=== PATIENT | female | born 1970 | race Caucasian/White ===

== ENCOUNTER 2017-07-17 21:19 | Emergency (ER) | payer BC ==
[2017-07-17 21:34] VITALS: BP 121/77
[2017-07-17] MEDS ORDERED: Fluorescein Sod TOPICAL 0.6* 0.6 MG TEST OPHTHALMIC ONE (21:40)
--- NOTE | 2017-07-17 21:47 | UC ---
Eye Complaint HPI - HPI Summary HPI Summary: 47 yo female with onset today of left eye redness and pain /10 since this AM no d/c slight itch slight photophobia see wears contacts - History of Current Complaint Chief Complaint: UCEye Stated Complaint: LEFT EYE COMPLAINT Time Seen by Provider: 07/17/17 21:35 Hx Obtained From: Patient Hx Last Menstrual Period: 07/16/17 Onset/Duration: Gradual Onset, Lasting Hours Timing: Constant Severity Initially: Mild Pain Intensity: 4 Pain Scale Used: 0-10 Numeric Character: Dull Alleviating Factor(s): Darkness Associated Signs And Symptoms: Positive: Drainage (Clear) - Risk Factors Penetrating Injury Risk Factor: Negative Globe Rupture Risk Factors: Negative Acute Glaucoma Risk Factors: Negative Optic Artery Occlusion Risk Factors: Negative - Allergies/Home Medications Allergies/Adverse Reactions: Allergies Allergy/AdvReac Type Severity Reaction Status Date / Time No Known Allergies Allergy Verified 07/17/17 21:34 Home Medications: Home Medications NK [No Home Medications Reported] 07/17/17 [History Confirmed 07/17/17] PMH/Surg Hx/FS Hx/Imm Hx Previously Healthy: Yes - Surgical History Surgical History: Yes Surgery Procedure, Year, and Place: 2 C-SECTS with tubal. breast bx right side/ benign. gallbladder - Family History Known Family History: Positive: Hypertension, Diabetes - Social History Alcohol Use: None Substance Use Type: None Smoking Status (MU): Never Smoked Tobacco Review of Systems Constitutional: Negative Skin: Negative Eyes: Eye Redness, Photophobia ENT: Negative Respiratory: Negative Cardiovascular: Negative Gastrointestinal: Negative Genitourinary: Negative Motor: Negative Neurovascular: Negative Musculoskeletal: Negative Neurological: Negative Psychological: Negative Is Patient Immunocompromised?: No All Other Systems Reviewed And Are Negative: Yes Physical Exam Triage Information Reviewed: Yes Appearance: Well-Appearing, No Pain Distress, Well-Nourished Vital Signs: Initial Vital Signs Temp 98.7 F 07/17/17 21:29 Pulse 79 07/17/17 21:29 Resp 15 07/17/17 21:29 BP 121/77 07/17/17 21:29 Pulse Ox 100 07/17/17 21:29 Eyes: Positive: Conjunctiva Inflamed - most pronounced temporal aspect left eye , Other: - flourescein (-). Negative: Discharge ENT: Positive: Hearing grossly normal. Negative: Nasal congestion, Nasal drainage, Trismus, Muffled voice, Hoarse voice Neck: Positive: Supple, Nontender Respiratory: Positive: Lungs clear, Normal breath sounds, No respiratory distress, No accessory muscle use Cardiovascular: Positive: RRR, No Murmur Musculoskeletal: Positive: ROM Intact, No Edema Neurological: Positive: Alert Psychological Exam: Normal Skin Exam: Normal Eye Complaint Course/Dx - Course Course Of Treatment: advise to she her eye doctor tomorrow - Differential Dx/Diagnosis Provider Diagnoses: left eye chemosis vs conjunctivitis Discharge - Discharge Plan Condition: Stable Disposition: HOME Patient Education Materials: Conjunctivitis (ED) Referrals: Donna Michaels [Primary Care Provider] - Additional Instructions: ? allergic conjunctivitis /chemosis cool compresses benadryl ZADITOR EYE DROPS OTC may help see your eye doctor tomorrow
[2017-07-17] MEDS ORDERED: Polymyx/Trimethoprim OPTH* 10 ML BTL LEFT EYE ONE (21:50)
[2017-07-17] MEDS ORDERED: diPHENhydraMINE PO* 25 MG PO ONE (21:51)
== END 2017-07-17 21:59 | disposition home or self-care (01) ==
LOC: UCCORT 21:19
DX: H57.8 Other specified disorders of eye and adnexa (principal); H53.142 Visual discomfort, left eye
CPT/HCPCS: 99213; A9270-GY; G0463

== ENCOUNTER 2017-09-25 20:54 | Emergency (ER) | payer BC ==
[2017-09-25 21:24] VITALS: BP 136/83
--- NOTE | 2017-09-25 21:35 | UC ---
Throat Pain/Nasal Kareem HPI - HPI Summary HPI Summary: Pt with frontal headache, congestion, and ear fullness progressive x 10 days. Pt has used OTC meds without relief. low grade fever. Pt reports teeth ache today. + green discharge pt's medications reviewed this visit - History of Current Complaint Chief Complaint: UCRespiratory Stated Complaint: SINUS Time Seen by Provider: 09/25/17 21:34 Hx Obtained From: Patient Hx Last Menstrual Period: 09/09/17 ?: No Onset/Duration: Gradual Onset Severity: Mild Pain Intensity: 8 - Allergies/Home Medications Allergies/Adverse Reactions: Allergies Allergy/AdvReac Type Severity Reaction Status Date / Time No Known Allergies Allergy Verified 07/17/17 21:34 Home Medications: Home Medications Naproxen Sodium [Aleve] 440 mg PO Q12H 09/25/17 [History Confirmed 09/25/17] PMH/Surg Hx/FS Hx/Imm Hx Previously Healthy: Yes - Surgical History Surgical History: Yes Surgery Procedure, Year, and Place: 2 C-SECTS with tubal. breast bx right side/ benign. gallbladder - Family History Known Family History: Positive: Hypertension, Diabetes - Social History Occupation: Employed Full-time Lives: With Family Alcohol Use: None Substance Use Type: None Smoking Status (MU): Never Smoked Tobacco Review of Systems Constitutional: Negative Skin: Negative ENT: Sinus Congestion, Sinus Pain/Tenderness Respiratory: Negative All Other Systems Reviewed And Are Negative: Yes Physical Exam Triage Information Reviewed: Yes Appearance: Well-Appearing, No Pain Distress, Well-Nourished Vital Signs: Initial Vital Signs Temp 100.8 F 09/25/17 21:18 Pulse 91 09/25/17 21:18 Resp 17 09/25/17 21:18 BP 136/83 09/25/17 21:18 Pulse Ox 99 09/25/17 21:18 Vital Signs Reviewed: Yes Eye Exam: Normal ENT: Positive: Hearing grossly normal, Pharynx normal, Other - right TM fluid, erythema left TM mild turbinates inflammed and boggy + thick PND no exudate mmoist uvula midline no erythema, no exudate Dental Exam: Normal Neck exam: Normal Neck: Positive: Supple, Nontender Respiratory Exam: Normal Respiratory: Positive: Chest non-tender, Lungs clear, Normal breath sounds, No respiratory distress, No accessory muscle use Cardiovascular Exam: Normal Cardiovascular: Positive: RRR, No Murmur Abdominal Exam: Normal Abdomen Description: Positive: Nontender, No Organomegaly Bowel Sounds: Positive: Present Musculoskeletal Exam: Normal Neurological Exam: Normal Neurological: Positive: Alert Psychological Exam: Normal Throat Pain/Nasal Course/Dx - Course Course Of Treatment: Pt with sinus congestion and progressive ear pain. pt with exam c/w sinusitis and right OM. will start abx. flonase. decongestant - precaution for BP. secretion pecaution. hydrate. return precautions - Differential Dx/Diagnosis Provider Diagnoses: sinusitis. OM - right Discharge - Sign-Out/Discharge Documenting (check all that apply): Discharge/Admit/Transfer - Discharge Plan Condition: Stable Disposition: HOME Prescriptions: Amoxicillin PO (*) [Amoxicillin 875 MG (*)] 875 mg PO BID #14 tab Fluticasone NASAL SPRAY 50MCG* [Flonase NASAL SPRAY 50MCG*] 2 spray BOTH NARES DAILY #1 btl Patient Education Materials: Rhinosinusitis (ED) Referrals: Donna Michaels [Primary Care Provider] - Additional Instructions: - Stay well hydrated. Drink plenty of non-alcoholic, non-caffinated beverages. - Alternate ibuprofen (Advil, Motrin) 600mg and Tylenol every 3 hours for pain or fever. Take with food. Do NOT take for more than 4-5 days. - These infections are spread by secretions - do NOT share eating or drinking utensils - clean items you share with other people such as cell phones, computer mouse, TV remote, computer tablets, steering well. etc. Once you have been antibiotics for 2 days, change your toothbrush and your pillowcase. - get plenty of restful sleep - heat to your face (Warm wash cloth, hot shower) may be soothing to your discomfort - okay to take over the counter decongestant.These medications may cause increased energy - recommend you take in the morning - use nasal spray as prescribed - contact your doctor or return with questions or concerns - Billing Disposition and Condition Condition: STABLE Disposition: HOME
[2017-09-25] MEDS ORDERED: Amoxicillin PO (*) 500 MG CAP PO ONE (21:43)
== END 2017-09-25 21:54 | disposition home or self-care (01) ==
LOC: UCCORT 20:54
DX: J32.9 Chronic sinusitis, unspecified (principal); H66.91 Otitis media, unspecified, right ear
CPT/HCPCS: 99212; A9270-GY; G0463

== ENCOUNTER 2017-10-11 17:07 | Emergency (ER) | payer BC ==
[2017-10-11 18:07] VITALS: BP 134/70
--- NOTE | 2017-10-11 19:10 | UC ---
Throat Pain/Nasal Kareem HPI - HPI Summary HPI Summary: 47 y/o female presents to the urgent care c/o sinus congestion, sinus pain w/ green nasal discharge for the past month. Pt reports symptoms started w/ common cold and she was seen here at the clinic on 09/09/2017 and Rx Amoxicillin, Zyrtec and flonase Nasal spray. Symptoms were improving while taking ABX. However symptoms worsen after 1 week of finishing ABx. PT states now nasal discharge is brown in color at times. Pain is 5/10 specially on the Rt side of her cheek. Pt denies fever, SOB, cough, chest pain, abdominal pain, N/V/D C - History of Current Complaint Chief Complaint: UCGeneralIllness Stated Complaint: SINUS Time Seen by Provider: 10/11/17 18:56 Hx Obtained From: Patient Hx Last Menstrual Period: 09/10/17 Onset/Duration: Gradual Onset, Lasting Weeks - 4 weeks, Still Present, Worse Since - 1 week Severity: Mild Pain Intensity: 5 Pain Scale Used: 0-10 Numeric Cough: Nonproductive Associated Signs & Symptoms: Positive: Sinus Discomfort, Nasal Discharge. Negative: Fever Related History: Seasonal Allergies - Epiglottits Risk Factors Epiglottis Risk Factors: Negative - Allergies/Home Medications Allergies/Adverse Reactions: Allergies Allergy/AdvReac Type Severity Reaction Status Date / Time No Known Allergies Allergy Verified 10/11/17 18:04 Home Medications: Home Medications Acetaminophen [Tylenol Extra Strength] 500 mg PO Q8HR PRN 10/11/17 [History Confirmed 10/11/17] Cetirizine HCl/Pseudoephedrine [Zyrtec-D Tablet] 1 each PO DAILY 10/11/17 [ History Confirmed 10/11/17] PMH/Surg Hx/FS Hx/Imm Hx Previously Healthy: Yes - Pt denies PMHX - Surgical History Surgical History: Yes Surgery Procedure, Year, and Place: 2 C-SECTS with tubal. breast bx right side/ benign. gallbladder - Family History Known Family History: Positive: Cardiac Disease, Hypertension, Diabetes Family History: CHF - Social History Occupation: Employed Full-time Lives: With Family Alcohol Use: Rare Substance Use Type: None Smoking Status (MU): Never Smoked Tobacco Review of Systems Constitutional: Negative Skin: Negative Eyes: Negative ENT: Nasal Discharge - green, Sinus Congestion, Sinus Pain/Tenderness, Other - PND Respiratory: Cough - dry Cardiovascular: Negative Gastrointestinal: Negative Genitourinary: Negative Motor: Negative Neurovascular: Negative Musculoskeletal: Negative Neurological: Negative Psychological: Negative Is Patient Immunocompromised?: No All Other Systems Reviewed And Are Negative: Yes Physical Exam - Summary Physical Exam Summary: Vitals: reviewed General: Well developed, well-nourished female patient with NAD. Head and face: Normocephalic and atraumatic, Positive tenderness over the frontal and maxillary sinuses.. Eyes: PERRLA, EOMI x 2. Normal conjunctiva. No eye discharge. ENT: Ears and TM with normal limits. Nose: edematous and erythematous nasal mucosa with with yellowish discharge and erythematous mucosa. Pharynx with erythema, no exudate. +PND green Neck: Supple, no JVD, no carotid bruits and no lymphadenopathy. Lungs: clear, no rales, no rhonchi, no wheezes. CVS: RRR, S1 and S2 present no murmurs or gallops appreciated. Abdomen: soft nontender with positive bowel sounds. Extremities: no edema noted. Neuro: WNL. Skin: warm and dry Triage Information Reviewed: Yes Vital Signs: Initial Vital Signs Temp 99.1 F 10/11/17 17:59 Pulse 77 10/11/17 17:59 Resp 15 10/11/17 17:59 BP 134/70 10/11/17 17:59 Pulse Ox 100 10/11/17 17:59 Throat Pain/Nasal Course/Dx - Course Course Of Treatment: 47 y/o female presents to the urgent care c/o sinus congestion, sinus pain w/ green nasal discharge for the past month. Pt reports symptoms started w/ common cold and she was seen here at the clinic on and Rx Amoxicillin, Zyrtec and flonase Nasal spray. Symptoms were improving while taking ABX. However symptoms worsen after 1 week of finishing ABx. PT states now nasal discharge is brown in color at times. Pain is 5/10 specially on the Rt side of her cheek. Pt denies fever, SOB, cough, chest pain, abdominal pain, N/V/D. Hx obtained. Pt w/ acute bacterial sinusitis on examination. Pt with 1 months of symptoms getting worse. Pt Rx Augmentin PO and advised to continue w/ flonase nasal spray and Zysrtec. Discharge instructions explained to Pt. Advised to Return to the clinic or PCP if symptoms do not improve.Pt understood and agreed with plan of care. - Differential Dx/Diagnosis Differential Diagnosis/HQI/PQRI: Laryngitis, Pharyngitis, Sinusitis, URI Provider Diagnoses: 1- Acute bacterial sinusitis Discharge - Sign-Out/Discharge Documenting (check all that apply): Discharge/Admit/Transfer - D/C home - Discharge Plan Condition: Stable Disposition: HOME Prescriptions: Amoxicillin/Clavulanate TAB* [Augmentin TAB 875*] 875 mg PO BID #20 tab Patient Education Materials: Sinusitis (ED) Referrals: Donna Michaels [Primary Care Provider] - 1 Week Additional Instructions: 1- Please increase fluid intake and rest. take full course of antibiotic to avoid resistance 2-Continu using Flonase as directed to help drain fluid. Also buy saline drops to clear sinuses 3-Continue taking Zyrtec PO to clear sinus congestion 4-Return to the clinic or PCP if symptoms do not improve for further management and treatment - Billing Disposition and Condition Condition: STABLE Disposition: Home
== END 2017-10-11 19:16 | disposition home or self-care (01) ==
LOC: UCCORT 17:07
DX: J01.90 Acute sinusitis, unspecified (principal); B96.89 Other specified bacterial agents as the cause of diseases classified elsewhere
CPT/HCPCS: 99211; G0463

== ENCOUNTER 2018-06-13 15:13 | Emergency (ER) | payer BC ==
[2018-06-13 15:45] VITALS: BP 121/82
--- NOTE | 2018-06-13 16:05 | UC ---
UC General HPI - HPI Summary HPI Summary: 2 DAY HX OF EAR PAIN, HEADACHE, N/V, FEVER/CHILLS, BODYACHES AND SORE THROAT. 2 CHILDREN HAVE THE SAME. CONFIRMED INFLUENZA A ON DAUGHTER WHO WAS TESTED. - History of Current Complaint Chief Complaint: UCGeneralIllness Stated Complaint: FEVER,BODY ACHES,CHILLS Time Seen by Provider: 06/13/18 15:34 Hx Obtained From: Patient Hx Last Menstrual Period: 12/2017 Timing: Constant Pain Intensity: 10 Associated Signs & Symptoms: Negative: Chest Pain, SOB - Allergy/Home Medications Allergies/Adverse Reactions: Allergies Allergy/AdvReac Type Severity Reaction Status Date / Time No Known Allergies Allergy Verified 06/13/18 15:45 PMH/Surg Hx/FS Hx/Imm Hx Previously Healthy: Yes - Surgical History Surgical History: Yes Surgery Procedure, Year, and Place: 2 C-SECTS with tubal. breast bx right side/ benign--has titanium ilan. gallbladder - Family History Known Family History: Positive: Cardiac Disease, Hypertension, Diabetes Family History: CHF - Social History Occupation: Employed Full-time Lives: With Family Alcohol Use: Rare Substance Use Type: None Smoking Status (MU): Never Smoked Tobacco - Immunization History Vaccination Up to Date: Yes Review of Systems All Other Systems Reviewed And Are Negative: Yes Constitutional: Positive: Fever, Chills Skin: Positive: Negative Eyes: Positive: Negative ENT: Positive: Sore Throat, Ear Ache Respiratory: Positive: Negative Cardiovascular: Positive: Negative Gastrointestinal: Positive: Vomiting, Nausea. Negative: Abdominal Pain Genitourinary: Positive: Negative Motor: Positive: Negative Neurovascular: Positive: Negative Musculoskeletal: Positive: Negative Neurological: Positive: Headache Psychological: Positive: Negative Is Patient Immunocompromised?: No Physical Exam Triage Information Reviewed: Yes Appearance: Ill-Appearing - BUT NON TOXIC Vital Signs: Initial Vital Signs Temp 100.5 F 06/13/18 15:42 Pulse 107 06/13/18 15:42 Resp 16 06/13/18 15:42 BP 121/82 06/13/18 15:42 Pulse Ox 99 06/13/18 15:42 Eyes: Positive: Conjunctiva Clear ENT: Positive: Pharynx normal, TMs normal. Negative: Nasal drainage Neck: Positive: Supple, Nontender, No Lymphadenopathy Respiratory: Positive: Lungs clear, Normal breath sounds, No respiratory distress Cardiovascular: Positive: No Murmur, Brisk Capillary Refill, Tachycardia Abdomen Description: Positive: Nontender, No Organomegaly, Soft Bowel Sounds: Positive: Present Musculoskeletal: Positive: ROM Intact Neurological: Positive: Alert Psychological: Positive: Age Appropriate Behavior Skin Exam: Normal Skin: Negative: Rashes Course/Dx - Course Course Of Treatment: child has same s/s's and tested + for influenza A - Differential Dx - Multi-Symptom Differential Diagnoses: Other - CLINICAL DX OF INFLUENZA - Diagnoses Provider Diagnosis: Influenza Discharge - Sign-Out/Discharge Documenting (check all that apply): Patient Departure All imaging exams completed and their final reports reviewed: No Studies - Discharge Plan Condition: Stable Disposition: HOME Prescriptions: Oseltamivir CAP* [Tamiflu CAP*] 75 mg PO BID 5 Days #10 cap Patient Education Materials: Influenza (DC) Forms: *Work Release Referrals: Donna Michaels [Primary Care Provider] - 7 Days - Billing Disposition and Condition Condition: STABLE Disposition: Home
== END 2018-06-13 16:14 | disposition home or self-care (01) ==
LOC: UCCORT 15:13
DX: J11.1 Influenza due to unidentified influenza virus with other respiratory manifestations (principal); H92.03 Otalgia, bilateral
CPT/HCPCS: 99212; G0463

== ENCOUNTER 2018-07-26 11:40 | Emergency (ER) | payer BC ==
[2018-07-26 12:21] VITALS: BP 134/78
--- NOTE | 2018-07-26 12:48 | ED ---
Respiratory - HPI Summary HPI Summary: 48 yr old female with the complaint of runny nose, cough, congestion, fever, myalgias. Onset of her symptoms four days ago. 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 No other complaints. - History of Current Complaint Chief Complaint: UCRespiratory Stated Complaint: FEVER, CONGESTION Time Seen by Provider: 07/26/18 12:27 Pain Intensity: 3 - Allergy/Home Medications Allergies/Adverse Reactions: Allergies Allergy/AdvReac Type Severity Reaction Status Date / Time No Known Allergies Allergy Verified 07/26/18 12:09 Home Medications: Home Medications D-Methorphan/PE/Acetaminophen [Vicks Dayquil Cold & Flu] 2 cap PO PRN 07/26/18 [ History] PMH/Surg Hx/FS Hx/Imm Hx Endocrine/Hematology History: Denies: Hx Diabetes Cardiovascular History: Denies: Hx Hypertension, Hx Pacemaker/ICD Respiratory History: Reports: Hx Asthma - h/o History: Denies: Hx Renal Disease Sensory History: Denies: Hx Hearing Aid Psychiatric History: Denies: Hx Panic Disorder - Surgical History Surgery Procedure, Year, and Place: 2 C-SECTS with tubal. breast bx right side/ benign--has titanium ilan. gallbladder Infectious Disease History: No Infectious Disease History: Denies: Traveled Outside the [place] in Last 30 Days - Family History Known Family History: Positive: Cardiac Disease, Hypertension, Diabetes Family History: CHF - Social History Occupation: Employed Full-time Lives: With Family Alcohol Use: Rare Substance Use Type: Reports: None Smoking Status (MU): Never Smoked Tobacco Review of Systems Positive: Fever, Chills Positive: Sore Throat, Nasal Discharge Positive: Cough Positive: Myalgia All Other Systems Reviewed And Are Negative: Yes Physical Exam Triage Information Reviewed: Yes Vital Signs On Initial Exam: Initial Vitals Temp Pulse Resp BP Pulse Ox 98.2 F 108 16 134/78 98 07/26/18 12:10 07/26/18 12:10 07/26/18 12:10 07/26/18 12:10 07/26/18 12:10 Vital Signs Reviewed: Yes Appearance: Positive: Well-Appearing, No Pain Distress Skin: Positive: Warm, Skin Color Reflects Adequate Perfusion Head/Face: Positive: Normal Head/Face Inspection Eyes: Positive: EOMI ENT: Positive: Pharyngeal erythema, Nasal congestion, Nasal drainage, TMs normal , Sinus tenderness Respiratory/Lung Sounds: Positive: Clear to Auscultation, Breath Sounds Present Cardiovascular: Positive: RRR. Negative: Murmur Abdomen Description: Negative: Distended Musculoskeletal: Positive: Strength/ROM Intact Neurological: Positive: Sensory/Motor Intact, Alert, Oriented to Person Place, Time, CN Intact II-III, Normal Gait, Speech Normal Psychiatric: Positive: Normal Diagnostics - Vital Signs Vital Signs Temp Pulse Resp BP Pulse Ox 07/26/18 12:10 98.2 F 108 16 134/78 98 - Laboratory Lab Statement: Any lab studies that have been ordered have been reviewed, and results considered in the medical decision making process. Disposition - Course Course Of Treatment: 48 yr old with sinusitis. Flu neg. Rx augmentin - Diagnoses Provider Diagnoses: Sinusitis Discharge - Sign-Out/Discharge Documenting (check all that apply): Patient Departure All imaging exams completed and their final reports reviewed: No Studies - Discharge Plan Condition: Good Disposition: HOME Prescriptions: Amoxicillin/Clavulanate TAB* [Augmentin TAB 875*] 875 mg PO BID #20 tab Patient Education Materials: Sinusitis (ED) Referrals: Donna Michaels [Primary Care Provider] - 2 Days - Billing Disposition and Condition Condition: GOOD Disposition: Home
[2018-07-26 12:57] LABS: Influenza A Molecular NEGATIVE (Negative); Influenza B Molecular NEGATIVE (Negative)
== END 2018-07-26 13:28 | disposition home or self-care (01) ==
LOC: UCCORT 11:40
DX: J32.9 Chronic sinusitis, unspecified (principal)
CPT/HCPCS: 99212; G0463